=== PATIENT | male | born 1950 | race Caucasian/White ===

== ENCOUNTER 2016-08-22 10:27 | Day surgery (SDC) | payer MEDICARE ==
[~2016-08-22 10:27] MED LIST: ASAB PO; BIST PO; C5 PO; FLOMAX4 PO; HALF81 PO; MELATONIN5 M1 PO; RELA5 PO; TYLENOL ARTH650 MG PO; VIB100 PO
== END 2016-08-22 23:59 | disposition home or self-care (01) ==
LOC: DMU 10:27
PROVIDERS: Internal Medicine Gastroenterology
PROC: 0D20XUZ Change Feeding Device in Upper Intestinal Tract, External Approach (ICD-10-PCS; principal; 2016-08-22 12:00)
DX: K94.23 Gastrostomy malfunction (principal); K63.89 Other specified diseases of intestine; Z98.890 Other specified postprocedural states; Z88.1 Allergy status to other antibiotic agents; Z88.8 Allergy status to other drugs, medicaments and biological substances; Z79.1 Long term (current) use of non-steroidal anti-inflammatories (NSAID); Z79.899 Other long term (current) drug therapy; Z87.828 Personal history of other (healed) physical injury and trauma
CPT/HCPCS: 74240

== ENCOUNTER 2017-03-18 12:02 | Inpatient (IN) | payer MEDICARE ==
[~2017-03-18] VITALS: Ht 170.2 cm; Wt 70.1 kg
--- NOTE | ~2017-03-18 | OP ---
Record Of Operation [facility] [address] [place]. [address] NAME: ARMIDA MCKEON : 52 STATUS : ADM IN [facility]#: [id number] AGE: 66 ADM/REG DATE : 03/18/17 MR#: [id number] REPORT SERV DATE: 03/19/17 DICTATED BY: MARY BILL III DATE: 03/19/17 REPORT STATUS : Draft TRANSCRIBED BY: MODL DATE: 03/19/17 DATE OF PROCEDURE: 03/19/2017 PREOPERATIVE DIAGNOSIS: Severe acute cholecystitis. POSTOPERATIVE DIAGNOSIS: Severe necrotizing cholecystitis with probable gangrenous cholecystitis and rupture of the gallbladder. PROCEDURE: Laparoscopic cholecystectomy. SURGEON: Mary Bill M.D. ANESTHESIA: General with intubation. COMPLICATIONS: None. ESTIMATED BLOOD LOSS: Less than 30 mL. SPECIMENS: Gallbladder. DRAINS: Hong-Woods in gallbladder bed. LAP AND SPONGE COUNT: Correct x3. BRIEF HISTORY: This 66-year-old male who was admitted to the hospital emergently with evidence for severe cholecystitis. It was felt that laparoscopic cholecystectomy, possible laparotomy, was indicated. The fact that this was a major operation with risk for major morbidity and mortality was fully and completely explained to the patient's family prior to surgery. The fact that he would be at marked increased risk for complications including enterotomy, possible need for laparotomy and common bile duct injury due to his multiple abdominal operations, was explained as well as an acute nature of his disease. The procedure risks, benefits, and alternatives, including not limited to the risk for bleeding, infection, common bile duct injury, bile leak, retained common bile stone, enterotomy, injury to any abdominal structure, the definite possible need for laparotomy, the possible persistence of his symptoms unrelieved by surgery, possibility of postoperative diarrhea or incisional hernia, and unforeseen complications including deep venous thrombosis, pulmonary embolus, myocardial infarction, stroke, pneumonia, and , were fully and completely explained to the patient's family at length prior to surgery. The fact that this was a major operation with risk for major morbidity and mortality and no guarantee for relief his symptoms were explained to them. The expected length of recovery of both open and laparoscopic procedures was explained. The patient and family had questions, which were answered. They fully understood the risks and agreed to the surgery as planned. DESCRIPTION OF PROCEDURE: After being properly identified and after discussing risks of surgery with the patient and his family again in the preoperative area, he was taken to the operating room and placed in the supine position on the operating room table. General Record Of Operation [facility] [address] [place]. [address] NAME: ARMIDA MCKEON : 52 STATUS : ADM IN PAT#: [id number] AGE: 66 ADM/REG DATE : 03/18/17 MR#: [id number] REPORT SERV DATE: 03/19/17 DICTATED BY: MARY IBLL III DATE: 03/19/17 REPORT STATUS : Draft TRANSCRIBED BY: MODJossie DATE: 03/19/17 anesthesia was administered, and he was intubated without difficulty. The abdomen was prepped and draped sterilely in the usual fashion. After an appropriate "[facility]-out" [facility] standards, a small transverse incision was made just below the xiphoid process. The incision was continued through the subcutaneous tissue. Hemostasis was controlled with cautery. The incision was continued through the fascia. The abdominal cavity was entered under direct vision. The peritoneal cavity was entered under direct vision. A #10-balloon- tipped Origin trocar was placed under direct vision into the peritoneal cavity. The balloon was inflated. The abdominal cavity was insufflated to about 13 mmHg of carbon dioxide. Correct position of the air in the peritoneal cavity was confirmed by palpation. The laparoscope was placed through this. The abdomen was inspected. The gallbladder appeared to be severely diseased. It was engulfed by the omentum. The gallbladder was massively distended, about three times normal. There were areas of luis necrosis and gangrene in the gallbladder ashford, which was extremely tensed, inflamed, and distended consistent with severe necrotizing to gangrenous cholecystitis. There was a free bile stained fluid around the gallbladder consistent with a microperforation. A 10-mm trocar was then placed just beneath the umbilicus, under direct vision of the laparoscope. The laparoscope was now placed through this infraumbilical trocar. The patient was placed in a reverse Trendelenburg position and to his left. Two 5 mm trocars were placed along the right subcostal margin, one in the midaxillary line and the other in the midclavicular line. These were also placed under direct vision with the laparoscope. The appropriate instruments were placed through the trocars. Using sharp dissection, the adhesions between the omentum and the gallbladder were carefully divided. The gallbladder ashford were thickened and inflamed. There were dense adhesions between the gallbladder and omentum consistent with severe acute necrotizing cholecystitis. The gallbladder was decompressed with a large needle and noted to contain a large amount of luis pus. The gallbladder was then grasped and the infundibulum of gallbladder was retracted laterally and inferiorly so as to expose the triangle of Calot. Using sharp dissection, the cystic duct was carefully and meticulously defined proximally and distally. The cystic duct was fairly long. The junction of cystic duct with the common bile duct was appreciated, but not skeletonized. The cystic artery was similarly defined proximally and distally. The fibrous and fatty tissue between these structures was divided so as to clearly identify the critical view of safety. The lower portion of the gallbladder was dissected away from the liver so as to clearly identify the triangle of Calot and critical angle. Once these structures were clearly defined, the cystic duct was clipped with two clips on the common bile duct side and one on the gallbladder side, all placed as close to the gallbladder as possible, taking care not encroach upon or injure the common bile duct in any way. The cystic duct was then divided between these clips as close to the gallbladder as possible. We elected not to perform a cholangiogram because there was no preoperative or intraoperative evidence for biliary dilatation because the patient's preoperative liver enzymes were normal and because his biliary anatomy was clearly defined. The cystic artery was then similarly clipped and divided as close to the gallbladder as possible. Using the spatula and the cautery, the gallbladder was carefully dissected from the liver bed. This went very well. Before the gallbladder was completely removed, the gallbladder bed and portal areas were irrigated numerous times with saline. The saline was aspirated dry. This process was repeated several times until hemostasis was meticulously and thoroughly assured in all areas. It was also assured that the clips in the portal area were in good position Record Of Operation [facility] [address] [place]. [address] NAME: ARMIDA MCKEON : 52 STATUS : ADM IN [facility]#: [id number] AGE: 66 ADM/REG DATE : 03/18/17 MR#: [id number] REPORT SERV DATE: 03/19/17 DICTATED BY: MARY BILL III DATE: 03/19/17 REPORT STATUS : Draft TRANSCRIBED BY: MODJossie DATE: 03/19/17 and that there was no extravasation of bile from any accessory bile duct. Once this was assured, gallbladder was dissected away from the liver and placed in an Endopouch. The liver bed was elevated, irrigated, inspected for meticulous and thorough hemostasis and for absence of any biliary extravasation. Once this was assured, a Hong-Woods drain was placed in the gallbladder bed and brought out through one of the lateral trocar sites. The gallbladder and the Endopouch were brought out through the subxiphoid trocar site. The fascia of this incision was closed with 0 Vicryl suture. The remaining lateral trocar was removed under direct vision, and these three upper trocar sites were inspected on the underside for hemostasis with the laparoscope. Once this was assured, the infraumbilical trocar was removed under direct vision with laparoscopic to assure hemostasis. The air was removed from the peritoneal cavity through the skin incisions. The fascia of this incision was closed with 0 Vicryl suture. The skin incisions were inspected for hemostasis. They were closed with running subcuticular 4-0 Monocryl stitches. They were injected with 0.5% Marcaine. Dressings were applied. Anesthesia was reversed. The patient was taken to recovery in stable condition. He tolerated the procedure well. His family was informed of results of surgery. The patient will remain in the hospital for postop care. This procedure was extremely difficult secondary to marked inflammatory changes and gangrenous changes, which distorted the normal portal anatomy and increased the length of procedure by 100%. For this reason, modifier 22 was added to the procedure code. RHJ/MIKIE Mary Bill III, M.D. / [id number] CC: Ryann Marin III, M.D.
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
[2017-03-18 13:07] LABS: BASOPHILS 0 %; EOSINOPHILS 0 %; HEMATOCRIT 40.5 % (40.0-51.0); HEMOGLOBIN 12.9 g/dL (13.6-17.8); IMMATURE GRANULOCYTES 0.2 %; LYMPHOCYTES ABSOLUTE 0.66 10/3/uL (0.67-4.30); MEAN CORPUS HGB CONC 31.9 g/dL (32.0-36.0); MEAN CORPUSCULAR HEMOGLOB 28.8 pg (26.0-34.0); MEAN CORPUSCULAR VOLUME 90.4 fL (80-100); MEAN PLATELET VOLUME 10.9 fL (9.2-13.0); MONOCYTES ABSOLUTE 1.51 10/3/uL (0.21-1.20); NEUTROPHILS 76.8 %; NEUTROPHILS ABSOLUTE 7.24 10/3/uL (2.02-8.40); PLATELET COUNT 176 10/3/uL (150-400); RBC DISTRIBUTION WIDTH 13.9 % (12.0-16.0); RED CELL COUNT 4.48 10/6/uL (4.7-6.1)
[2017-03-18 13:08] LABS: ER CBC TAT 0 Hrs 10 Mins; IMMATURE GRANULOCYTES ABSOLUTE 0.02 10/3/uL (0.0-0.11); MANUAL DIFF NO %; WHITE BLOOD CELLS 9.4 10/3/uL (4.5-10.5)
[2017-03-18 13:22] LABS: ALBUMIN 2.5 G/DL (3.5-5.0); DIRECT BILIRUBIN 0.2 MG/DL (0.0-0.4); INDIRECT BILIRUBIN(NOT ORDER) 0.5 MG/DL (0.1-0.9); TOTAL BILIRUBIN 0.7 MG/DL (0-1.2); TOTAL PROTEIN 7.2 G/DL (6.0-8.5)
[2017-03-18 13:30] LABS: A/G RATIO 0.5 (0.7-1.9); ALBUMIN 2.5 G/DL (3.5-5.0); ALKALINE PHOSPHATASE 110 U/L (45-117); BAND NEUTROPHILS 15 %; BUN (BLOOD UREA NITROGEN) 12 MG/DL (6-23); CALCIUM, SERUM 9.2 MG/DL (8.5-10.4); CHLORIDE, SERUM 100 MMOL/L (96-112); CO2 (CARBON DIOXIDE) 23 MMOL/L (24-34); CREATININE 0.61 MG/DL (0.70-1.30); ER DIFF TAT 0 Hrs 32 Mins; GFR AFRICAN AMERICAN 121 ML/MIN (>=60); GFR NON AFRICAN AMERICAN 105 ML/MIN (>=60); GLOBULIN 5.1 G/DL (2.5-4.1); GLUCOSE, SERUM 106 MG/DL (60-99); IMMATURE GRANS ABSOLUTE (CALC) 0.19 10/3/uL (0.0-0.11); LYMPHOCYTES 9 %; LYMPHOCYTES ABSOLUTE (CALC) 0.85 10/3/uL (0.67-4.30); METAMYELOCYTES 2 %; MONOCYTES 7 %; MONOCYTES ABSOLUTE (CALC) 0.66 10/3/uL (0.21-1.20); NEUTROPHILS ABSOLUTE (CALC) 7.71 10/3/uL (2.02-8.40); PLATELET ESTIMATE ADQ (ADEQUATE); POTASSIUM, SERUM 3.9 MMOL/L (3.5-5.3); SEGMENTED NEUTROPHIL (0) 67 %; SGOT(AST) 19 U/L (5-40); SGPT(ALT) 21 U/L (5-65); SODIUM, SERUM 134 MMOL/L (135-148); TOTAL BILIRUBIN 0.9 MG/DL (0-1.2); TOTAL NUCLEATED CELLS 100; TOTAL PROTEIN 7.6 G/DL (6.0-8.5)
[2017-03-18 13:31] LABS: RBC MORPHOLOGY NORM (NORMAL)
[2017-03-18] MEDS ORDERED: DITRO5 PEG (14:32)
[2017-03-18] MEDS ORDERED: BIST PEG (14:32)
[2017-03-18] MEDS ORDERED: MELATONIN5 M1 PEG (14:33)
[2017-03-18] MEDS ORDERED: ALAWAY EYE DROPS OPH (14:33)
[2017-03-18] MEDS ORDERED: MOBIC15 MG PEG (14:33)
[2017-03-18] MEDS ORDERED: ZANTAC15 MG/ML PEG (14:34)
[2017-03-18] MEDS ORDERED: SINGULAIR1 PEG (14:34)
[2017-03-18] MEDS ORDERED: BIOTENE MOUTH SPRAY PO (14:35)
[2017-03-18] MEDS ORDERED: MOMUD PEG (14:36)
[2017-03-19 03:23] LABS: ASCORBIC ACID (UR NOT ORDER) 40 (NEG); BILIRUBIN, URINE NEGATIVE (NEG); KETONE, URINE TRACE MG/DL (NEG); LEUKOCYTE ESTERASE(NOT OR NEG (NEG); WBC (NOT ORDERED) (RFLEX) 1 (0-5)
[2017-03-19 06:16] LABS: HEMOGLOBIN 10.8 g/dL (13.6-17.8); MEAN CORPUS HGB CONC 32.4 g/dL (32.0-36.0); MEAN CORPUSCULAR HEMOGLOB 28.7 pg (26.0-34.0); MEAN CORPUSCULAR VOLUME 88.6 fL (80-100); MEAN PLATELET VOLUME 10.7 fL (9.2-13.0); PLATELET COUNT 158 10/3/uL (150-400); RBC DISTRIBUTION WIDTH 14.1 % (12.0-16.0); RED CELL COUNT 3.76 10/6/uL (4.7-6.1); WHITE BLOOD CELLS 11.4 10/3/uL (4.5-10.5)
[2017-03-19 06:17] LABS: HEMATOCRIT 33.3 % (40.0-51.0); MANUAL DIFF YES %
[2017-03-19 06:38] LABS: BAND NEUTROPHILS 11 %; BUN (BLOOD UREA NITROGEN) 19 MG/DL (6-23); CALCIUM, SERUM 8.8 MG/DL (8.5-10.4); CHLORIDE, SERUM 104 MMOL/L (96-112); CO2 (CARBON DIOXIDE) 26 MMOL/L (24-34); CREATININE 0.75 MG/DL (0.70-1.30); GFR AFRICAN AMERICAN 112 ML/MIN (>=60); GFR NON AFRICAN AMERICAN 96 ML/MIN (>=60); GLUCOSE, SERUM 92 MG/DL (60-99); LYMPHOCYTES 7 %; MONOCYTES 5 %; MONOCYTES ABSOLUTE (CALC) 0.57 10/3/uL (0.21-1.20); NEUTROPHILS ABSOLUTE (CALC) 10.03 10/3/uL (2.02-8.40); PHOSPHORUS, SERUM 1.7 MG/DL (2.5-4.5); POTASSIUM, SERUM 3.7 MMOL/L (3.5-5.3); SEGMENTED NEUTROPHIL (0) 77 %; SODIUM, SERUM 137 MMOL/L (135-148); TOTAL NUCLEATED CELLS 100; ULTRASENSITIVE TSH 0.359 MCIU/ML (0.358-3.740)
[2017-03-19 06:39] LABS: PLATELET ESTIMATE ADQ (ADEQUATE); RBC MORPHOLOGY NORM (NORMAL)
[2017-03-19 19:29] LABS: HEMATOCRIT 33.8 % (40.0-51.0); HEMOGLOBIN 10.8 g/dL (13.6-17.8)
[2017-03-20 05:37] LABS: BASOPHILS 0 %; EOSINOPHILS 0 %; HEMATOCRIT 31.2 % (40.0-51.0); IMMATURE GRANULOCYTES 0.2 %; IMMATURE GRANULOCYTES ABSOLUTE 0.01 10/3/uL (0.0-0.11); LYMPHOCYTES 9.4 %; LYMPHOCYTES ABSOLUTE 0.55 10/3/uL (0.67-4.30); MEAN CORPUS HGB CONC 32.1 g/dL (32.0-36.0); MEAN CORPUSCULAR HEMOGLOB 28.9 pg (26.0-34.0); MEAN CORPUSCULAR VOLUME 90.2 fL (80-100); MEAN PLATELET VOLUME 10.7 fL (9.2-13.0); MONOCYTES ABSOLUTE 0.76 10/3/uL (0.21-1.20); NEUTROPHILS 77.4 %; NEUTROPHILS ABSOLUTE 4.51 10/3/uL (2.02-8.40); PLATELET COUNT 141 10/3/uL (150-400); RBC DISTRIBUTION WIDTH 14.2 % (12.0-16.0); RED CELL COUNT 3.46 10/6/uL (4.7-6.1)
[2017-03-20 05:38] LABS: MANUAL DIFF NO %; WHITE BLOOD CELLS 5.8 10/3/uL (4.5-10.5)
[2017-03-20 05:49] LABS: A/G RATIO 0.4 (0.7-1.9); ALBUMIN 1.7 G/DL (3.5-5.0); ALKALINE PHOSPHATASE 169 U/L (45-117); BUN (BLOOD UREA NITROGEN) 19 MG/DL (6-23); CALCIUM, SERUM 8.5 MG/DL (8.5-10.4); CHLORIDE, SERUM 109 MMOL/L (96-112); CO2 (CARBON DIOXIDE) 25 MMOL/L (24-34); CREATININE 0.58 MG/DL (0.70-1.30); GFR AFRICAN AMERICAN 124 ML/MIN (>=60); GFR NON AFRICAN AMERICAN 107 ML/MIN (>=60); GLOBULIN 3.9 G/DL (2.5-4.1); GLUCOSE, SERUM 145 MG/DL (60-99); POTASSIUM, SERUM 3.9 MMOL/L (3.5-5.3); SGOT(AST) 62 U/L (5-40); SGPT(ALT) 58 U/L (5-65); SODIUM, SERUM 139 MMOL/L (135-148); TOTAL BILIRUBIN 2.8 MG/DL (0-1.2); TOTAL PROTEIN 5.6 G/DL (6.0-8.5)
[2017-03-21 06:50] LABS: BUN (BLOOD UREA NITROGEN) 16 MG/DL (6-23); CALCIUM, SERUM 8.1 MG/DL (8.5-10.4); CHLORIDE, SERUM 111 MMOL/L (96-112); CO2 (CARBON DIOXIDE) 24 MMOL/L (24-34); CREATININE 0.51 MG/DL (0.70-1.30); GFR AFRICAN AMERICAN 131 ML/MIN (>=60); GFR NON AFRICAN AMERICAN 113 ML/MIN (>=60); GLUCOSE, SERUM 125 MG/DL (60-99); POTASSIUM, SERUM 4.2 MMOL/L (3.5-5.3); SODIUM, SERUM 141 MMOL/L (135-148)
[2017-03-21 06:55] LABS: BASOPHILS 0.3 %; BASOPHILS ABSOLUTE 0.01 10/3/uL (0.0-0.16); EOSINOPHILS 2.3 %; EOSINOPHILS ABSOLUTE 0.09 10/3/uL (0.0-0.53); HEMATOCRIT 29.1 % (40.0-51.0); HEMOGLOBIN 9.3 g/dL (13.6-17.8); IMMATURE GRANULOCYTES 0.5 %; IMMATURE GRANULOCYTES ABSOLUTE 0.02 10/3/uL (0.0-0.11); LYMPHOCYTES 15.6 %; LYMPHOCYTES ABSOLUTE 0.61 10/3/uL (0.67-4.30); MEAN CORPUSCULAR HEMOGLOB 29.2 pg (26.0-34.0); MEAN CORPUSCULAR VOLUME 91.2 fL (80-100); MEAN PLATELET VOLUME 11.3 fL (9.2-13.0); MONOCYTES 13.5 %; MONOCYTES ABSOLUTE 0.53 10/3/uL (0.21-1.20); NEUTROPHILS 67.8 %; NEUTROPHILS ABSOLUTE 2.66 10/3/uL (2.02-8.40); PLATELET COUNT 142 10/3/uL (150-400); RBC DISTRIBUTION WIDTH 14.2 % (12.0-16.0); RED CELL COUNT 3.19 10/6/uL (4.7-6.1); WHITE BLOOD CELLS 3.9 10/3/uL (4.5-10.5)
[2017-03-21 06:58] LABS: MANUAL DIFF NO %
[2017-03-21 09:02] LABS: A/G RATIO 0.4 (0.7-1.9); ALBUMIN 1.6 G/DL (3.5-5.0); GLOBULIN 3.8 G/DL (2.5-4.1); SGOT(AST) 39 U/L (5-40); SGPT(ALT) 50 U/L (5-65); TOTAL PROTEIN 5.4 G/DL (6.0-8.5)
[2017-03-21 09:03] LABS: ALKALINE PHOSPHATASE 150 U/L (45-117); TOTAL BILIRUBIN 1.2 MG/DL (0-1.2)
[2017-03-22 07:15] LABS: BASOPHILS 0 %; EOSINOPHILS 0 %; HEMATOCRIT 30.9 % (40.0-51.0); HEMOGLOBIN 9.8 g/dL (13.6-17.8); IMMATURE GRANULOCYTES 0.3 %; IMMATURE GRANULOCYTES ABSOLUTE 0.01 10/3/uL (0.0-0.11); LYMPHOCYTES 10.6 %; LYMPHOCYTES ABSOLUTE 0.39 10/3/uL (0.67-4.30); MEAN CORPUS HGB CONC 31.7 g/dL (32.0-36.0); MEAN CORPUSCULAR HEMOGLOB 28.9 pg (26.0-34.0); MEAN CORPUSCULAR VOLUME 91.2 fL (80-100); MEAN PLATELET VOLUME 11.7 fL (9.2-13.0); MONOCYTES 5.7 %; MONOCYTES ABSOLUTE 0.21 10/3/uL (0.21-1.20); NEUTROPHILS 83.4 %; NEUTROPHILS ABSOLUTE 3.08 10/3/uL (2.02-8.40); PLATELET COUNT 146 10/3/uL (150-400); RBC DISTRIBUTION WIDTH 14.4 % (12.0-16.0); RED CELL COUNT 3.39 10/6/uL (4.7-6.1); WHITE BLOOD CELLS 3.7 10/3/uL (4.5-10.5)
[2017-03-22 07:17] LABS: MANUAL DIFF NO %
[2017-03-22 07:32] LABS: A/G RATIO 0.4 (0.7-1.9); ALBUMIN 1.8 G/DL (3.5-5.0); ALKALINE PHOSPHATASE 165 U/L (45-117); BUN (BLOOD UREA NITROGEN) 16 MG/DL (6-23); CALCIUM, SERUM 8.1 MG/DL (8.5-10.4); CHLORIDE, SERUM 109 MMOL/L (96-112); CO2 (CARBON DIOXIDE) 24 MMOL/L (24-34); CREATININE 0.69 MG/DL (0.70-1.30); GFR AFRICAN AMERICAN 115 ML/MIN (>=60); GFR NON AFRICAN AMERICAN 100 ML/MIN (>=60); GLOBULIN 4.3 G/DL (2.5-4.1); GLUCOSE, SERUM 204 MG/DL (60-99); POTASSIUM, SERUM 4.5 MMOL/L (3.5-5.3); SGOT(AST) 27 U/L (5-40); SGPT(ALT) 45 U/L (5-65); SODIUM, SERUM 139 MMOL/L (135-148); TOTAL BILIRUBIN 1.7 MG/DL (0-1.2); TOTAL PROTEIN 6.1 G/DL (6.0-8.5)
[2017-03-23 04:32] LABS: BASOPHILS 0 %; EOSINOPHILS 1.6 %; EOSINOPHILS ABSOLUTE 0.08 10/3/uL (0.0-0.53); HEMATOCRIT 29.8 % (40.0-51.0); HEMOGLOBIN 9.4 g/dL (13.6-17.8); IMMATURE GRANULOCYTES 0.4 %; IMMATURE GRANULOCYTES ABSOLUTE 0.02 10/3/uL (0.0-0.11); LYMPHOCYTES 15.8 %; MEAN CORPUS HGB CONC 31.5 g/dL (32.0-36.0); MEAN CORPUSCULAR HEMOGLOB 28.9 pg (26.0-34.0); MEAN CORPUSCULAR VOLUME 91.7 fL (80-100); MEAN PLATELET VOLUME 11.3 fL (9.2-13.0); MONOCYTES 11.2 %; MONOCYTES ABSOLUTE 0.57 10/3/uL (0.21-1.20); PLATELET COUNT 149 10/3/uL (150-400); RBC DISTRIBUTION WIDTH 14.3 % (12.0-16.0); RED CELL COUNT 3.25 10/6/uL (4.7-6.1); WHITE BLOOD CELLS 5.1 10/3/uL (4.5-10.5)
[2017-03-23 04:39] LABS: MANUAL DIFF NO %
[2017-03-23 04:50] LABS: A/G RATIO 0.4 (0.7-1.9); ALBUMIN 1.7 G/DL (3.5-5.0); CALCIUM, SERUM 7.9 MG/DL (8.5-10.4); CHLORIDE, SERUM 110 MMOL/L (96-112); CO2 (CARBON DIOXIDE) 26 MMOL/L (24-34); CREATININE 0.83 MG/DL (0.70-1.30); GFR AFRICAN AMERICAN 107 ML/MIN (>=60); GFR NON AFRICAN AMERICAN 92 ML/MIN (>=60); POTASSIUM, SERUM 4.2 MMOL/L (3.5-5.3); SGOT(AST) 22 U/L (5-40); SGPT(ALT) 39 U/L (5-65); SODIUM, SERUM 142 MMOL/L (135-148); TOTAL PROTEIN 5.7 G/DL (6.0-8.5)
[2017-03-23 04:52] LABS: ALKALINE PHOSPHATASE 148 U/L (45-117); BUN (BLOOD UREA NITROGEN) 20 MG/DL (6-23); GLUCOSE, SERUM 118 MG/DL (60-99); TOTAL BILIRUBIN 1.1 MG/DL (0-1.2)
[2017-03-24 05:03] LABS: BASOPHILS 0.1 %; BASOPHILS ABSOLUTE 0.01 10/3/uL (0.0-0.16); EOSINOPHILS 5.2 %; HEMATOCRIT 30.1 % (40.0-51.0); HEMOGLOBIN 9.7 g/dL (13.6-17.8); IMMATURE GRANULOCYTES 0.4 %; IMMATURE GRANULOCYTES ABSOLUTE 0.03 10/3/uL (0.0-0.11); LYMPHOCYTES 10.3 %; LYMPHOCYTES ABSOLUTE 0.79 10/3/uL (0.67-4.30); MEAN CORPUS HGB CONC 32.2 g/dL (32.0-36.0); MEAN CORPUSCULAR HEMOGLOB 29.2 pg (26.0-34.0); MEAN CORPUSCULAR VOLUME 90.7 fL (80-100); MEAN PLATELET VOLUME 11.3 fL (9.2-13.0); MONOCYTES ABSOLUTE 0.84 10/3/uL (0.21-1.20); NEUTROPHILS ABSOLUTE 5.57 10/3/uL (2.02-8.40); PLATELET COUNT 175 10/3/uL (150-400); RBC DISTRIBUTION WIDTH 14.4 % (12.0-16.0); RED CELL COUNT 3.32 10/6/uL (4.7-6.1)
[2017-03-24 05:04] LABS: MANUAL DIFF NO %; WHITE BLOOD CELLS 7.6 10/3/uL (4.5-10.5)
[2017-03-24 05:17] LABS: BUN (BLOOD UREA NITROGEN) 19 MG/DL (6-23); CHLORIDE, SERUM 106 MMOL/L (96-112); CO2 (CARBON DIOXIDE) 27 MMOL/L (24-34); CREATININE 0.83 MG/DL (0.70-1.30); GFR AFRICAN AMERICAN 107 ML/MIN (>=60); GFR NON AFRICAN AMERICAN 92 ML/MIN (>=60); GLUCOSE, SERUM 132 MG/DL (60-99); POTASSIUM, SERUM 4.1 MMOL/L (3.5-5.3); SODIUM, SERUM 139 MMOL/L (135-148)
== END 2017-03-24 16:21 | DRG 417 ==
LOC: ENRESERVTM → ENRESERVDT → ENRESERV → ER 12:02 → 4SO 16:49
PROVIDERS: Emergency Medicine; Nurse Practitioner Family; Surgery
PROC: 0FT44ZZ Resection of Gallbladder, Percutaneous Endoscopic Approach (ICD-10-PCS; principal; 2017-03-18)
DX: K81.0 Acute cholecystitis (principal); G82.50 Quadriplegia, unspecified; E43 Unspecified severe protein-calorie malnutrition; R00.1 Bradycardia, unspecified; K21.9 Gastro-esophageal reflux disease without esophagitis; Z90.49 Acquired absence of other specified parts of digestive tract; Z87.442 Personal history of urinary calculi; Z86.718 Personal history of other venous thrombosis and embolism; Z99.81 Dependence on supplemental oxygen; Z68.24 Body mass index [BMI] 24.0-24.9, adult
CPT/HCPCS: 71010; 74176; 80048; 80053; 80076; 81001; 82962; 83036; 83690; 83735; 84100; 84443; 85014; 85018; 85025; 88304; 93005; 94640; 96374; 97161-GP; 97530-GP; 99285; A9270-GY; G8978-CL-GP; G8979-CL-GP; J1170; J2250; J2405; J2543; J2710; J2930; J3010; P9047